=== PATIENT | female | born 1990 | race Caucasian/White ===

== ENCOUNTER 2024-01-31 07:26 | Emergency (ER) | payer BC, SELFPAY ==
[2024-01-31 07:42] VITALS: BP 125/84
--- NOTE | 2024-01-31 08:28 | ED.GENMED ---
History of Present Illness
General
Chief Complaint: Cold/Flu/URI Symptoms
Source: patient and family
Time Seen by Provider: 01/31/24 08:16
Travel History
Have you had any contact with someone who has COVID-19?: No
Do you have any symptoms of coronavirus? Fever > 100 degrees, chills, cough, shortness of breath, sore throat, loss of taste or smell, muscle aches, or headache?: No
History of Present Illness
History of Present Illness:
33-year-old female presents emergency department accompanied by her and [id number] with complaints of symptoms are started last evening. She describes a generalized mild headache associated with subjectively feeling warm and teeth
chattering overnight. She felt well throughout the day yesterday. She did note however earlier yesterday that her throat felt dry and scratchy, and is now slightly sore. She took Claritin-D thinking that this was allergies, but has not taken any
other medications. She denies chest pain or pressure, dyspnea, cough, abdominal pain, nausea, vomiting, neck pain or photophobia, rash, or other complaints.
Past History
Past History
ED Past Medical History: None
ED Past Surgical History: Gynecological and Other (Facial reconstruction)
Social History
Tobacco: Non-smoker
Alcohol: None
Drug: None
Personal:
Living: with family
Phy Exam
Physical Exam
Physical Exam:
GENERAL: Alert , in no apparent distress, nontoxic, well-appearing
EYE: pupils equal and reactive, no photophobia
NECK: Supple, no significant adenopathy, nods yes and no spontaneously without hesitation.
ENT: o/p clr, mmm, voice clear, no trismus, no drool, no exudate, uvula midline, TMs clear bilaterally.
CARDIAC: Regular rate and rhythm .
LUNGS: Clear breath sounds bilaterally, no acute respiratory distress, no wheezes/rales/rhonchi
ABDOMEN: Soft, without focal tenderness, no r/g, no cvat
NEUROLOGICAL: Alert and oriented, no focal neuro deficits
SKIN: Warm and dry, skin intact.
MUSCULOSKELETAL: No edema, well perfused.
PSYCH: Normal and appropriate interaction.
Course
Orders/Labs/Results
Orders:
Orders
01/31/24 08:32
COVID-19 Antigen Urgent
Source: Nasal Swab
Influenza A+B Rapid Molecular Urgent
[facility] Source: Nasal Swab
Specimen Description:
01/31/24 08:34
Rapid Strep Group A Urgent
[facility] Source: Throat/Pharynx
Specimen Description:
Date Specimen was Collected: 01/31/24
Time Specimen was Collected: 08:33
Vital Signs
Initial and Last Documented VS:
Initial Vital Signs
Temp Pulse Resp BP Pulse Ox
99.1 F 101 16 125/84 98
01/31/24 07:42 01/31/24 07:42 01/31/24 07:42 01/31/24 07:42 01/31/24 07:42
Last Documented Vital Signs
Temp Pulse Resp BP Pulse Ox
99.1 F 101 16 125/84 98
01/31/24 07:42 01/31/24 07:42 01/31/24 07:42 01/31/24 07:42 01/31/24 07:42
*Critical Care Note
Total Time (30-74mins, 75-104mins- exclusive of procedures): Not Applicable
Update Note
Update Note:
Patient presents to the Emergency Department with ____fever chills sore throat headache
Number and Complexity of Problems Addressed at the Encounter
� Chronic conditions affecting care:
� Acute Exacerbation and/or Progression of Chronic Illness:
� Differential Diagnosis includes: But not limited to viral syndrome, COVID, influenza, strep pharyngitis, etc.
Amount and/or Complexity of Data to be Reviewed and Analyzed
� I performed an independent evaluation of and my interpretation is:
EKG:
CT:
Xrays:
Laboratory Studies:
Other: COVID flu and strep all negative
� Review of other/old records reveals:
� Clinical information was obtained by an independent historian: and [id number]
� Prescriptions/Medications Considered but not given:
� Further testing considered but not performed:
Risk of Complications and/or Morbidity or Mortality of Patient Management
� Social determinants of health affecting care:
� Discussion with other providers (PCP, Hospitalists, Consultants, etc):
9:41 AM as I was just walking in the room to update the patient regarding her testing, I was informed that she walked out on the ER without informing staff. RN states that she requested Nyquil severe and when informed we dno't have here, left
without notice. Of note, no s/sxs to suggest meningitis/encephalitis, no nucahl rigidity/photophobia/etc.
� Escalation of care including admission/observation vs risk of discharge considered:
ED Attending Note
-
Portions of this chart may have been created with voice recognition software.� Occasional wrong word or��sound alike� substitutions may have occurred due to the inherent limitations of voice recognition software.
Discharge Plan
Departure
Patient Disposition: Against Medical Advice
Date of Disposition: 01/31/24
Time of Disposition: 09:42
Discharge Problem:
Fever and chills
Referrals:
UNKNOWN - PT DOES,NOT KNOW [Family Provider] -
Interventions
Interventions:
*ED COVID-19 Vaccine History Last Done: 01/31/24 07:42
ED- Pulmonary Assessment Last Done: 01/31/24 08:42
Discharge Date and Time
Print Language: GERMAN
[2024-01-31 09:03] LABS: COVID-19 Antigen Negative (Negative)
== END 2024-01-31 09:50 | disposition left against medical advice (07) ==
LOC: EMR 07:26
PROVIDERS: EMERGENCY PHYSICIAN Emergency Medicine
DX: R50.9 Fever, unspecified (principal); Z53.29 Procedure and treatment not carried out because of patient's decision for other reasons
CPT/HCPCS: 99283; 87070; 87502; 87811; 87880